=== PATIENT | male | born 1980 | race Caucasian/White ===

== ENCOUNTER 2016-09-27 11:11 | Emergency (ER) | payer BC, OTHER ==
[2016-09-27 11:40] LABS: BASO % 0.2 % (0.0-1.0); EOS # 0.1 K/mm3 (0.0-0.50); EOS % 1.3 % (0.0-3.0); LARGE UNSTAINED CELL # 0.1 K/mm3 (0.0-0.4); LARGE UNSTAINED CELL % 1.5 % (0.0-4.0); LYMPH # 1.7 K/mm3 (1.5-4.5); LYMPH % 21.6 % (24.0-44.0); MEAN CORPUSCULAR HEMOGLOBIN 28.6 pg (27.0-33.0); MEAN CORPUSCULAR HGB CONC 33.8 g/dl (32.0-36.5); MEAN CORPUSCULAR VOLUME 84.7 fl (80.0-96.0); MONO # 0.3 K/mm3 (0.0-0.8); MONO % 4.4 % (0.0-5.0); NEUTROPHILS # 5.5 K/mm3 (1.8-7.7); PLATELET COUNT, AUTOMATED 246 k/mm3 (150-450); RED CELL DISTRIBUTION WIDTH 13.1 % (11.5-14.5); WHITE BLOOD COUNT 7.7 K/mm3 (4.0-10.0)
[2016-09-27 12:13] LABS: ANION GAP 7 MEQ/L (8-16); BLOOD UREA NITROGEN 14 MG/DL (7-18); CALCIUM LEVEL 8.5 MG/DL (8.5-10.1); CARBON DIOXIDE LEVEL 26 MEQ/L (21-32); CHLORIDE LEVEL 106 MEQ/L (98-107); CREATININE FOR GFR 0.92 MG/DL (0.70-1.30); GLOMERULAR FILTRATION RATE > 60.0 (>60); GLUCOSE, FASTING 114 MG/DL (70-105); POTASSIUM SERUM 4.2 MEQ/L (3.5-5.1); SODIUM LEVEL 139 MEQ/L (136-145)
--- NOTE | 2016-09-27 12:14 | REP ---
PORTABLE CHEST X-RAY: Semi-erect AP view. HISTORY: Chest pain. Comparison chest x-ray November 07, 2013. FINDINGS: The patient is status post prior median sternotomy. Heart is not felt to be enlarged. EKG monitoring electrodes are seen. Pulmonary vasculature is not increased. The lungs are well inflated and clear. Pleural angles are sharp. IMPRESSION: Prior sternotomy. Otherwise no acute disease. Signed by Lam Vo MD 09/27/2016 02:01 P
--- NOTE | 2016-09-27 18:38 | EDDOCDS ---
Physician Documentation [facility] Name: Freeman Valdez Age: 36 yrs Sex: Male : 1980 Arrival Date: 09/27/2016 Time: 11:11 Bed OBSERVATION Private MD: Brody Stewart H. Disposition: 09/27/16 18:27 Patient has left against medical advice. Impression: Chest pain, unspecified. - Patients states they are going to Home/Self Care. - Condition is Fair. - Discharge Instructions: Angina Pectoris, Nonspecific Chest Pain, Chest Wall Pain, Nonspecific Chest Pain, [id number]. Medication Reconciliation, Local Pharmacy Hours form. Follow up: Emergency Department; When: Tomorrow. - Problem is new. - Symptoms are resolved. Historical: - Allergies: no known allergies; - Home Meds: 1. Plavix 75 mg Oral tab 1 tab once daily (Last dose: 09/27/2016 06:00) 2. aspirin 81 mg Oral TbEC 1 tab once daily (Last dose: 09/27/2016 06:00) 3. lisinopril 10 mg Oral tab once daily (Last dose: 09/27/2016 06:00) 4. atorvastatin 40 mg oral tab once daily (Last dose: 09/27/2016 06:00) 5. metoprolol tartrate 25 mg Oral tab 1 tab once daily (Last dose: 09/27/2016 06:00) 6. Nitrostat 0.4 mg SL subl every 5 minutes (Last dose: 09/27/2016 10:45) - PMHx: Myocardial infarction; Hypercholesterolemia; Hypertension; - PSHx: Stents, Coronary (December 2009); CABG (2009); knee surgery; triple bypass; - Social history: Smoking status: Patient uses tobacco products, current every day smoker. No barriers to communication noted, The patient speaks fluent Latvian, Speaks appropriately for age. - Family history: No immediate family members are acutely ill. - : The pt / caregiver states he / she is on anticoagulants: Plavix. Home medication list is obtained from the patient. - Exposure Risk Screening:: None identified. Vital Signs: 09/27 11:12 BP 171 / 105; Pulse 84; Resp 18; Temp 97.8(O); Pulse Ox 99% on R/A; Weight 170.1 kg / dd6 375.01 lbs (R); Height 6 ft. 4 in. (193.04 cm) (R); 14:46 Pulse 74 MON; Pulse Ox 98% ; mb9 14:46 BP 145 / 89 (auto/); mb9 16:46 BP 146 / 65 (auto/); mb9 16:47 Pulse 78 MON; Pulse Ox 96% ; mb9 11:12 Body Mass Index 45.65 (170.10 kg, 193.04 cm) dd6 MDM: 11:18 ECG WITH READING ER PHYS+CARDIAG ordered. EDMS 11:19 Stamping Operator/Pulse Ox/q 30 min VS ordered. sd1 11:19 IV Saline Lock ordered. sd1 11:19 Rhythm Strip to chart ordered. sd1 11:19 Undress patient appropriately for examination ordered. sd1 11:20 Basic Metabolic Profile Ordered. EDMS 11:20 CBC with Diff Ordered. EDMS 11:20 Cardiac Injury Profile Ordered. EDMS 11:20 D-Dimer Quant Ordered. EDMS 11:20 Troponin Ordered. EDMS 11:21 Chest, 1 View Ordered. EDMS 11:58 CBC with Diff Reviewed. sd1 12:12 Financial registration complete. mm15 12:20 Basic Metabolic Profile Reviewed. sd1 12:20 Cardiac Injury Profile Reviewed. sd1 12:20 Troponin Reviewed. sd1 12:20 Chest, 1 View Reviewed. sd1 12:35 Recheck B/P ordered. sd1 12:36 Redraw CIP &Troponin (put time in details section) ordered. sd1 12:36 Repeat EKG (put time details section) ordered. sd1 12:46 Repeat EKG (put time details section) complete. lbd 12:46 Redraw CIP &Troponin (put time in details section) complete. lbd 12:49 CARDIAC MARKER PANEL Ordered. EDMS 12:51 ECG WITH READING ER PHYS ordered. EDMS 13:25 [facility] Payment Agreement was scanned into [employer] and attached to record. mm15 13:25 REGULAR+DIET ordered. EDMS 13:36 D-Dimer Quant Reviewed. sd1 18:12 CARDIAC MARKER PANEL Reviewed. sd1 18:12 Chest, 1 View Reviewed. sd1 Signatures: Dispatcher [employer] EDMS Paula Dela Cruz MD MD sd1 Nahomy Rene, Industrial Health Engineer Unit lbd Lena Rodriguez RN RN srm Dana Jones RN RN ld5 Morenita Leong mm15 Cassius Kingston RN RN mb9 The chart was reviewed and I authenticate all verbal orders and agree with the evaluation and treatment provided.Corrections: (The following items were deleted from the chart) 11:26 11:20 Home Meds: carvedilol oral oral (Last Dose: 09/27/2016 06:00); srm srm Attachments: 13:25 [facility] [place] mm15 MTDD
--- NOTE | 2016-09-27 18:38 | EDDOCDS ---
Nurse's Notes [facility] Name: Freeman Valdez Age: 36 yrs Sex: Male : 1980 Arrival Date: 09/27/2016 Time: 11:11 Bed OBSERVATION Private MD: Brody Stewart H. Diagnosis: Chest pain, unspecified Presentation: 09/27 11:17 Presenting complaint: Patient states: mid chest pain since 1000. pain does not radiate. srm took 3 nitro without change in chest pressure. hx [place] 3 yrs ago. no cough or cold symptoms, no change in pain with a deep breath. Adult Sepsis Screening: The patient does not have new or worsening altered mentation. Patient's respiratory rate is less than 22. Systolic blood pressure is greater than 100. Patient has a qSOFA score of 0- Negative Sepsis Screen. Suicide/Homicide risk assessment- the patient denies having any suicidal and/or homicidal ideations and does not present with any other emotional, behavioral or mental health complaints. Status: Patient is not a clinical services specialist or dependent. Transition of care: patient was not received from another setting of care. 11:17 Acuity: AVE Level 2 srm 11:17 Method Of Arrival: Walkin/Carried/Asstd srm 11:26 81MG AT 0600. srm Triage Assessment: 11:20 General: Appears in no apparent distress, Behavior is appropriate for age, cooperative. srm Pain: Denies pain. Quality of pain is described as pressure. HIV screening NA for this visit Offered previously. Cardiovascular: Chest pain is described as denies pain. radiates Does not radiate. episodes are continuous began 1.5 hours. Historical: - Allergies: no known allergies; - Home Meds: 1. Plavix 75 mg Oral tab 1 tab once daily (Last dose: 09/27/2016 06:00) 2. aspirin 81 mg Oral TbEC 1 tab once daily (Last dose: 09/27/2016 06:00) 3. lisinopril 10 mg Oral tab once daily (Last dose: 09/27/2016 06:00) 4. atorvastatin 40 mg oral tab once daily (Last dose: 09/27/2016 06:00) 5. metoprolol tartrate 25 mg Oral tab 1 tab once daily (Last dose: 09/27/2016 06:00) 6. Nitrostat 0.4 mg SL subl every 5 minutes (Last dose: 09/27/2016 10:45) - PMHx: Myocardial infarction; Hypercholesterolemia; Hypertension; - PSHx: Stents, Coronary (December 2009); CABG (2009); knee surgery; triple bypass; - Social history: Smoking status: Patient uses tobacco products, current every day smoker. No barriers to communication noted, The patient speaks fluent British, Speaks appropriately for age. - Family history: No immediate family members are acutely ill. - : The pt / caregiver states he / she is on anticoagulants: Plavix. Home medication list is obtained from the patient. - Exposure Risk Screening:: None identified. Screenin:04 Screening information is obtained from the patient. Fall risk: No risks identified. mb9 Assistance ADL's: requires no assistance with activities of daily living. Abuse/DV Screen: The patient / caregiver reports he/she is: not in a situation that causes fear, pain or injury. Nutritional screening: No deficits noted. Advance Directives: There is no active DNR order. home support is adequate. Assessment: 12:21 General: Appears in no apparent distress, Behavior is appropriate for age, cooperative. mb9 Cardiovascular: Heart tones S1 S2 present Pulses are all present. Rhythm is sinus rhythm Chest pain pt reports "chest pressure" prior to arrival that has now subsided. . Respiratory: Airway is patent Respiratory effort is even, unlabored. 13:00 Reassessment: Patient appears in no apparent distress at this time. Patient states mb9 symptoms have improved. General: Appears in no apparent distress, comfortable, Behavior is cooperative. Pain: Denies pain. Respiratory: Airway is patent Respiratory effort is even, unlabored. 14:04 Reassessment: Patient appears in no apparent distress at this time. Patient states mb9 symptoms have improved. General: Appears in no apparent distress, comfortable, Behavior is appropriate for age, cooperative. Pain: Denies pain. Respiratory: Airway is patent Respiratory effort is even, unlabored. 15:00 Reassessment: Patient appears in no apparent distress at this time. Patient states mb9 symptoms have improved. General: Appears comfortable, Behavior is appropriate for age, cooperative. Pain: Denies pain. Respiratory: Airway is patent Respiratory effort is even, unlabored. 16:30 Reassessment: Patient states symptoms have improved. Adult Sepsis Screening: The mb9 patient does not have new or worsening altered mentation. Patient's respiratory rate is less than 22. Systolic blood pressure is greater than 100. Patient has a qSOFA score of 0- Negative Sepsis Screen. General: Appears distressed, Behavior is crying. General: at this time pt would like to sign AMA. this rn explained to pt that it would only be another hour before draw the troponin and do the ekg and that with his cardiac history he should seriously consider staying to have repeat lab work. . Pain: Denies pain. Respiratory: Airway is patent Respiratory effort is even, unlabored. 18:33 General: First contact with pt. Pt up pacing around room. SO at bedside. SO reports ld5 provider explained to pt risks of leaving AMA. This RN explained to pt and SO that ER is always open if pt decides to return. Pt and SO both express understanding of follow-up at ER tomorrow. Vital Signs: 11:12 BP 171 / 105; Pulse 84; Resp 18; Temp 97.8(O); Pulse Ox 99% on R/A; Weight 170.1 kg dd6 (R); Height 6 ft. 4 in. (193.04 cm) (R); 14:46 Pulse 74 MON; Pulse Ox 98% ; mb9 14:46 BP 145 / 89 (auto/); mb9 16:46 BP 146 / 65 (auto/); mb9 16:47 Pulse 78 MON; Pulse Ox 96% ; mb9 11:12 Body Mass Index 45.65 (170.10 kg, 193.04 cm) dd6 Vitals: 11:12 Log In Time: September 27, 2016 at 11:10. RN notified that patient meets Red Flag dd6 criteria. ED Course: 11:12 Patient visited by Henry Rubio PCA. dd6 11:12 Brody Stewart is Private Physician. dd6 11:12 Patient moved to Waiting dd6 11:16 Patient moved to 18 [facility] 11:18 Triage Initiated [facility] 11:22 EKG done. (by ED staff). Reviewed by Paula Dela Cruz MD. nb2 11:26 The patient / caregiver is instructed regarding the plan of care and ED course. Patient srm has correct armband on for positive identification. Placed in gown. Bed in low position. Call light in reach. Side rails up X 1. paper final inspector on. Pulse ox on. NIBP on. 11:26 Inserted saline lock: 20 gauge in left antecubital area and blood collected. srm 11:27 Patient visited by Lena Rodriguez, KYLAH. srm 11:31 Basic Metabolic Profile Sent. kr3 11:31 CBC with Diff Sent. kr3 11:31 Cardiac Injury Profile Sent. kr3 11:31 D-Dimer Quant Sent. kr3 11:32 Troponin Sent. kr3 11:45 Paula Dela Cruz MD is Attending Physician. sd1 11:45 Patient visited by Paula Dela Cruz MD. sd1 12:15 Chest, 1 View Returned. EDMS 13:25 [facility] Payment Agreement was scanned into [employer] and attached to record. mm15 13:36 Patient moved to OBSERVATION sd1 14:04 No procedures done that require assistance. mb9 14:36 Chest, 1 View Returned. EDMS 14:49 Patient visited by Cassius Kingston RN. mb9 17:53 Patient visited by Geoff Kee PCA. jrd 17:53 EKG done. (by ED staff). Reviewed by Paula Dela Cruz MD. jrd 18:32 Patient visited by Nataliia Herbert RN. ja5 18:32 Discontinued lock intact, bleeding controlled, pressure dressing applied, No ja5 redness/swelling at site. 18:37 Patient visited by Dana Jones RN. ld5 Order Results: Lab Order: Basic Metabolic Profile; SPEC'M 09/27/16 11:30 Test: GLUCOSE, FASTING; Value: 114; Range: 70-105; Abnormal: Above high normal; Units: MG/DL; Status: F Test: BLOOD UREA NITROGEN; Value: 14; Range: 7-18; Units: MG/DL; Status: F Test: CREATININE FOR GFR; Value: 0.92; Range: 0.70-1.30; Units: MG/DL; Status: F Test: GLOMERULAR FILTRATION RATE; Value: > 60.0; Range: >60; Status: F Test: SODIUM LEVEL; Value: 139; Range: 136-145; Units: MEQ/L; Status: F Test: POTASSIUM SERUM; Value: 4.2; Range: 3.5-5.1; Units: MEQ/L; Status: F Test: CHLORIDE LEVEL; Value: 106; Range: 98-107; Units: MEQ/L; Status: F Test: CARBON DIOXIDE LEVEL; Value: 26; Range: 21-32; Units: MEQ/L; Status: F Test: ANION GAP; Value: 7; Range: 8-16; Abnormal: Below low normal; Units: MEQ/L; Status: F Test: CALCIUM LEVEL; Value: 8.5; Range: 8.5-10.1; Units: MG/DL; Status: F Test Note: ; Units are mL/min/1.73 m2 Chronic Kidney Disease Staging per NKF: Stage I & II GFR >=60 Normal to Mildly Decreased Stage III GFR 30-59 Moderately Decreased Stage IV GFR 15-29 Severely Decreased Stage V GFR <15 Very Little GFR Left ESRD GFR <15 on GUEST SPECIALIST Lab Order: CBC with Diff; SPEC'M 09/27/16 11:30 Test: WHITE BLOOD COUNT; Value: 7.7; Range: 4.0-10.0; Units: K/mm3; Status: F Test: RED BLOOD COUNT; Value: 5.28; Range: 4.30-6.10; Units: M/mm3; Status: F Test: HEMOGLOBIN; Value: 15.1; Range: 14.0-18.0; Units: g/dl; Status: F Test: HEMATOCRIT; Value: 44.7; Range: 42.0-52.0; Units: %; Status: F Test: MEAN CORPUSCULAR VOLUME; Value: 84.7; Range: 80.0-96.0; Units: fl; Status: F Test: MEAN CORPUSCULAR HEMOGLOBIN; Value: 28.6; Range: 27.0-33.0; Units: pg; Status: F Test: MEAN CORPUSCULAR HGB CONC; Value: 33.8; Range: 32.0-36.5; Units: g/dl; Status: F Test: RED CELL DISTRIBUTION WIDTH; Value: 13.1; Range: 11.5-14.5; Units: %; Status: F Test: PLATELET COUNT, AUTOMATED; Value: 246; Range: 150-450; Units: k/mm3; Status: F Test: NEUTROPHILS %; Value: 71.0; Range: 36.0-66.0; Abnormal: Above high normal; Units: %; Status: F Test: LYMPH %; Value: 21.6; Range: 24.0-44.0; Abnormal: Below low normal; Units: %; Status: F Test: MONO %; Value: 4.4; Range: 0.0-5.0; Units: %; Status: F Test: EOS %; Value: 1.3; Range: 0.0-3.0; Units: %; Status: F Test: BASO %; Value: 0.2; Range: 0.0-1.0; Units: %; Status: F Test: LARGE UNSTAINED CELL %; Value: 1.5; Range: 0.0-4.0; Units: %; Status: F Test: NEUTROPHILS #; Value: 5.5; Range: 1.8-7.7; Units: K/mm3; Status: F Test: LYMPH #; Value: 1.7; Range: 1.5-4.5; Units: K/mm3; Status: F Test: MONO #; Value: 0.3; Range: 0.0-0.8; Units: K/mm3; Status: F Test: EOS #; Value: 0.1; Range: 0.0-0.50; Units: K/mm3; Status: F Test: BASO #; Value: 0.0; Range: 0.0-0.2; Units: K/mm3; Status: F Test: LARGE UNSTAINED CELL #; Value: 0.1; Range: 0.0-0.4; Units: K/mm3; Status: F Lab Order: Cardiac Injury Profile; SPEC'M 09/27/16 11:30 Test: CPK CREATINE PHOSPHOKINASE; Value: 415; Range: 39-308; Abnormal: Above high normal; Units: U/L; Status: F Test: CK-MB VALUE MASS; Value: 2.0; Range: 0.0-3.6; Units: NG/ML; Status: F Test: MB/CK RELATIVE INDEX; Value: 0.48; Range: < OR =4; Status: F Test Note: ; DIAGNOSIS CRITERIA MMB ng/ml Relative Index (RI) NON-AMI < or = 5 N/A LOPEZ ZONE > 5 < or = 4 AMI > 5 > 4 Lab Order: D-Dimer Quant; SPEC'M 09/27/16 12:11 Test: D-DIMER QUANT; Value: 270.7; Range: <500; Units: ng/ml; Status: F Lab Order: Troponin; SPEC'M 09/27/16 11:30 Test: TROPONIN I; Value: < 0.02; Range: < 0.10; Units: NG/ML; Status: F Test Note: ; Troponin I Reference Interval for Siemens Ganos LOCI: 99th Percentile= 0.00-0.045 ng/ml Risk Stratification: <= 0.10 ng/ml Decreased Risk for Adverse Clinical Events. 0.10-1.50 ng/ml Increased Risk for Adverse Clinical Events. Evaluation of additional criterion and/or repeat testing in 2-6 hours is suggested to rule out myocardial damage. >= 1.50 ng/ml Indicative of Myocardial Injury. Lab Order: CARDIAC MARKER PANEL; SPEC'M 09/27/16 17:28 Test: CPK CREATINE PHOSPHOKINASE; Value: 343; Range: 39-308; Abnormal: Above high normal; Units: U/L; Status: F Test: CK-MB VALUE MASS; Value: 1.5; Range: 0.0-3.6; Units: NG/ML; Status: F Test: MB/CK RELATIVE INDEX; Value: 0.43; Range: < OR =4; Status: F Test: TROPONIN I; Value: < 0.02; Range: < 0.10; Units: NG/ML; Status: F Test Note: ; DIAGNOSIS CRITERIA MMB ng/ml Relative Index (RI) NON-AMI < or = 5 N/A LOPEZ ZONE > 5 < or = 4 AMI > 5 > 4 Radiology Order: Chest, 1 View Test: Chest, 1 View REASON FOR EXAMINATION: Chest Pain; PORTABLE CHEST X-RAY: Semi-erect AP view.; ; HISTORY: Chest pain.; ; Comparison chest x-ray November 07, 2013.; ; FINDINGS: The patient is status post prior median sternotomy. Heart is not felt; to be enlarged. EKG monitoring electrodes are seen. Pulmonary vasculature is; not increased. The lungs are well inflated and clear. Pleural angles are; sharp.; ; IMPRESSION: Prior sternotomy. Otherwise no acute disease.; ; ; Signed by; Lam Vo MD 09/27/2016 02:01 P; Outcome: 18:27 Patient left against medical advice. sd1 18:33 Discharge Assessment: Patient awake, alert and oriented x 3. No cognitive and/or ld5 functional deficits noted. Patient verbalized understanding of disposition instructions. patient administered narcotics - no. The following High Risk Discharge criteria are identified: Yes, AMA. The patient is leaving AMA: Notification of AMA status is made to the charge nurse, the ED attending physician. Condition: unchanged. No special radiology studies were completed. Property :Personal belongings accompany Pt. 18:37 Patient left the ED. ld5 Signatures: Dispatcher Med[employer] EDMS Paula Dela Cruz MD MD sd1 Lena Rodriguez, RN RN srm Benita Muñiz,RN RN kr3 Henry Rubio, TOMATO PASTE MAKER TOMATO PASTE MAKER dd6 Dana JonesRN RN ld5 Morenita Leong mm15 Geoff Kee, TOMATO PASTE MAKER TOMATO PASTE MAKER d Cassius Kingston,RN RN mb9 Scarlet Grimes2 Nataliia Herbert,RN RN ja5 Corrections: (The following items were deleted from the chart) 11:26 11:17 Aspirin was not taken prior to arrival. srm srm 11:26 11:20 Home Meds: carvedilol oral oral (Last Dose: 09/27/2016 06:00); srm srm MTDD
--- NOTE | 2016-09-27 19:30 | ECGEPIP ---
Stationary ECG Study [facility] - ED Test Date: 2016-09-27 Pat Name: ALEX LYNCH Department: Room: - Gender: M Science Liaison: cherise : 1980 Requested By: Paula Dela Cruz Order Number: [id number] Reading MD: Paula Dela Cruz Measurements Intervals [place] Rate: 86 P: 9 [place]: 179 QRS: 14 QRSD: 97 T: 57 QT: 395 QTc: 473 Interpretive Statements SINUS RHYTHM NONSPECIFIC T-WAVE ABNORMALITY PRIOR INFERIOR MO INCREASED RATE 11/07/13 Electronically Signed On 09-27-2016 19:30:09 EST by Paula Dela Cruz
--- NOTE | 2016-09-27 19:36 | ECGEPIP ---
Stationary ECG Study [facility] - ED Test Date: 2016-09-27 Pat Name: ALEX LYNCH Department: Room: - Gender: M Cager Operator: fartun : 1980 Requested By: Paula Dela Cruz Order Number: [id number] Reading MD: Paula Dela Cruz Measurements Intervals [place] Rate: 80 P: 15 OR: 164 QRS: 23 QRSD: 94 T: 76 QT: 394 QTc: 455 Interpretive Statements SINUS RHYTHM POSSIBLE INFERIOR MYOCARDIAL INFARCTION, PROBABLY OLD MODERATE T-WAVE ABNORMALITY, CONSIDER ANTEROLATERAL ISCHEMIA, MORE PRONOUNCED COMPARED 11:22 Electronically Signed On 09-27-2016 19:35:53 EST by Paula Dela Cruz
--- NOTE | 2016-09-29 19:38 | EDDOCDS ---
Physician Documentation [facility] Name: Freeman Valdez Age: 36 yrs Sex: Male : 1980 Arrival Date: 09/27/2016 Time: 11:11 Bed OBSERVATION Private MD: Brody Stewart H. Disposition: 09/27/16 18:27 Patient has left against medical advice. Impression: Chest pain, unspecified. - Patients states they are going to Home/Self Care. - Condition is Fair. - Discharge Instructions: Angina Pectoris, Nonspecific Chest Pain, Chest Wall Pain, Nonspecific Chest Pain, [id number]. Medication Reconciliation, Local Pharmacy Hours form. Follow up: Emergency Department; When: Tomorrow. - Problem is new. - Symptoms are resolved. Historical: - Allergies: no known allergies; - Home Meds: 1. Plavix 75 mg Oral tab 1 tab once daily (Last dose: 09/27/2016 06:00) 2. aspirin 81 mg Oral TbEC 1 tab once daily (Last dose: 09/27/2016 06:00) 3. lisinopril 10 mg Oral tab once daily (Last dose: 09/27/2016 06:00) 4. atorvastatin 40 mg oral tab once daily (Last dose: 09/27/2016 06:00) 5. metoprolol tartrate 25 mg Oral tab 1 tab once daily (Last dose: 09/27/2016 06:00) 6. Nitrostat 0.4 mg SL subl every 5 minutes (Last dose: 09/27/2016 10:45) - PMHx: Myocardial infarction; Hypercholesterolemia; Hypertension; - PSHx: Stents, Coronary (December 2009); CABG (2009); knee surgery; triple bypass; - Social history: Smoking status: Patient uses tobacco products, current every day smoker. No barriers to communication noted, The patient speaks fluent Polish, Speaks appropriately for age. - Family history: No immediate family members are acutely ill. - : The pt / caregiver states he / she is on anticoagulants: Plavix. Home medication list is obtained from the patient. - Exposure Risk Screening:: None identified. Vital Signs: 09/27 11:12 BP 171 / 105; Pulse 84; Resp 18; Temp 97.8(O); Pulse Ox 99% on R/A; Weight 170.1 kg / dd6 375.01 lbs (R); Height 6 ft. 4 in. (193.04 cm) (R); 14:46 Pulse 74 MON; Pulse Ox 98% ; mb9 14:46 BP 145 / 89 (auto/); mb9 16:46 BP 146 / 65 (auto/); mb9 16:47 Pulse 78 MON; Pulse Ox 96% ; mb9 11:12 Body Mass Index 45.65 (170.10 kg, 193.04 cm) dd6 MDM: 11:18 ECG WITH READING ER PHYS+CARDIAG ordered. EDMS 11:19 [employer] Professor/Pulse Ox/q 30 min VS ordered. sd1 11:19 IV Saline Lock ordered. sd1 11:19 Rhythm Strip to chart ordered. sd1 11:19 Undress patient appropriately for examination ordered. sd1 11:20 Basic Metabolic Profile Ordered. EDMS 11:20 CBC with Diff Ordered. EDMS 11:20 Cardiac Injury Profile Ordered. EDMS 11:20 D-Dimer Quant Ordered. EDMS 11:20 Troponin Ordered. EDMS 11:21 Chest, 1 View Ordered. EDMS 11:58 CBC with Diff Reviewed. sd1 12:12 Financial registration complete. mm15 12:20 Basic Metabolic Profile Reviewed. sd1 12:20 Cardiac Injury Profile Reviewed. sd1 12:20 Troponin Reviewed. sd1 12:20 Chest, 1 View Reviewed. sd1 12:35 Recheck B/P ordered. sd1 12:36 Redraw CIP &Troponin (put time in details section) ordered. sd1 12:36 Repeat EKG (put time details section) ordered. sd1 12:46 Repeat EKG (put time details section) complete. lbd 12:46 Redraw CIP &Troponin (put time in details section) complete. lbd 12:49 CARDIAC MARKER PANEL Ordered. EDMS 12:51 ECG WITH READING ER PHYS ordered. EDMS 13:25 [facility] was scanned into [employer] and attached to record. mm15 13:25 REGULAR+DIET ordered. EDMS 13:36 D-Dimer Quant Reviewed. sd1 18:12 CARDIAC MARKER PANEL Reviewed. sd1 18:12 Chest, 1 View Reviewed. sd1 09/28 08:43 T-Sheet-- Draft Copy was scanned into [employer] and attached to record. se 08:44 ECG/EKG was scanned into [employer] and attached to record. [facility] 09:52 T-Sheet-- Draft Copy was scanned into [employer] and attached to record. gb Signatures: Dispatcher [employer] EDMS Paula Dela Cruz MD MD sd1 Nahomy Rene, Rail Detector Car Operator Unit lbd Lena Rodriguez, RN RN srm Mumtaz, Vi, Reg Reg gb Dana Jones RN RN ld5 Morenita Leong mm15 Cassius Kingston RN RN mb9 Paula Brooks [facility] The chart was reviewed and I authenticate all verbal orders and agree with the evaluation and treatment provided.Corrections: (The following items were deleted from the chart) 09/27 11:26 11:20 Home Meds: carvedilol oral oral (Last Dose: 09/27/2016 06:00); srm srm Attachments: 13:25 [facility] Payment Agreement mm15 08:44 ECG/EKG [facility] 09:52 T-Sheet-- Draft Copy gb Chart Complete MTDD
--- NOTE | 2016-09-29 19:38 | EDDOCDS ---
Nurse's Notes [facility] Name: Alex Valdez Age: 36 yrs Sex: Male : 1980 Arrival Date: 09/27/2016 Time: 11:11 Bed OBSERVATION Private MD: Brody Stewart H. Diagnosis: Chest pain, unspecified Presentation: 09/27 11:17 Presenting complaint: Patient states: mid chest pain since 1000. pain does not radiate. srm took 3 nitro without change in chest pressure. hx UT 3 yrs ago. no cough or cold symptoms, no change in pain with a deep breath. Adult Sepsis Screening: The patient does not have new or worsening altered mentation. Patient's respiratory rate is less than 22. Systolic blood pressure is greater than 100. Patient has a qSOFA score of 0- Negative Sepsis Screen. Suicide/Homicide risk assessment- the patient denies having any suicidal and/or homicidal ideations and does not present with any other emotional, behavioral or mental health complaints. Status: Patient is not a services clerk or dependent. Transition of care: patient was not received from another setting of care. 11:17 Acuity: AVE Level 2 srm 11:17 Method Of Arrival: Walkin/Carried/Asstd srm 11:26 81MG AT 0600. srm Triage Assessment: 11:20 General: Appears in no apparent distress, Behavior is appropriate for age, cooperative. srm Pain: Denies pain. Quality of pain is described as pressure. HIV screening NA for this visit Offered previously. Cardiovascular: Chest pain is described as denies pain. radiates Does not radiate. episodes are continuous began 1.5 hours. Historical: - Allergies: no known allergies; - Home Meds: 1. Plavix 75 mg Oral tab 1 tab once daily (Last dose: 09/27/2016 06:00) 2. aspirin 81 mg Oral TbEC 1 tab once daily (Last dose: 09/27/2016 06:00) 3. lisinopril 10 mg Oral tab once daily (Last dose: 09/27/2016 06:00) 4. atorvastatin 40 mg oral tab once daily (Last dose: 09/27/2016 06:00) 5. metoprolol tartrate 25 mg Oral tab 1 tab once daily (Last dose: 09/27/2016 06:00) 6. Nitrostat 0.4 mg SL subl every 5 minutes (Last dose: 09/27/2016 10:45) - PMHx: Myocardial infarction; Hypercholesterolemia; Hypertension; - PSHx: Stents, Coronary (December 2009); CABG (2009); knee surgery; triple bypass; - Social history: Smoking status: Patient uses tobacco products, current every day smoker. No barriers to communication noted, The patient speaks fluent Venezuelan, Speaks appropriately for age. - Family history: No immediate family members are acutely ill. - : The pt / caregiver states he / she is on anticoagulants: Plavix. Home medication list is obtained from the patient. - Exposure Risk Screening:: None identified. Screenin:04 Screening information is obtained from the patient. Fall risk: No risks identified. mb9 Assistance ADL's: requires no assistance with activities of daily living. Abuse/DV Screen: The patient / caregiver reports he/she is: not in a situation that causes fear, pain or injury. Nutritional screening: No deficits noted. Advance Directives: There is no active DNR order. home support is adequate. Assessment: 12:21 General: Appears in no apparent distress, Behavior is appropriate for age, cooperative. mb9 Cardiovascular: Heart tones S1 S2 present Pulses are all present. Rhythm is sinus rhythm Chest pain pt reports "chest pressure" prior to arrival that has now subsided. . Respiratory: Airway is patent Respiratory effort is even, unlabored. 13:00 Reassessment: Patient appears in no apparent distress at this time. Patient states mb9 symptoms have improved. General: Appears in no apparent distress, comfortable, Behavior is cooperative. Pain: Denies pain. Respiratory: Airway is patent Respiratory effort is even, unlabored. 14:04 Reassessment: Patient appears in no apparent distress at this time. Patient states mb9 symptoms have improved. General: Appears in no apparent distress, comfortable, Behavior is appropriate for age, cooperative. Pain: Denies pain. Respiratory: Airway is patent Respiratory effort is even, unlabored. 15:00 Reassessment: Patient appears in no apparent distress at this time. Patient states mb9 symptoms have improved. General: Appears comfortable, Behavior is appropriate for age, cooperative. Pain: Denies pain. Respiratory: Airway is patent Respiratory effort is even, unlabored. 16:30 Reassessment: Patient states symptoms have improved. Adult Sepsis Screening: The mb9 patient does not have new or worsening altered mentation. Patient's respiratory rate is less than 22. Systolic blood pressure is greater than 100. Patient has a qSOFA score of 0- Negative Sepsis Screen. General: Appears distressed, Behavior is crying. General: at this time pt would like to sign AMA. this rn explained to pt that it would only be another hour before draw the troponin and do the ekg and that with his cardiac history he should seriously consider staying to have repeat lab work. . Pain: Denies pain. Respiratory: Airway is patent Respiratory effort is even, unlabored. 18:33 General: First contact with pt. Pt up pacing around room. SO at bedside. SO reports ld5 provider explained to pt risks of leaving AMA. This RN explained to pt and SO that ER is always open if pt decides to return. Pt and SO both express understanding of follow-up at ER tomorrow. Vital Signs: 11:12 BP 171 / 105; Pulse 84; Resp 18; Temp 97.8(O); Pulse Ox 99% on R/A; Weight 170.1 kg dd6 (R); Height 6 ft. 4 in. (193.04 cm) (R); 14:46 Pulse 74 MON; Pulse Ox 98% ; mb9 14:46 BP 145 / 89 (auto/); mb9 16:46 BP 146 / 65 (auto/); mb9 16:47 Pulse 78 MON; Pulse Ox 96% ; mb9 11:12 Body Mass Index 45.65 (170.10 kg, 193.04 cm) dd6 Vitals: 11:12 Log In Time: September 27, 2016 at 11:10. RN notified that patient meets Red Flag dd6 criteria. ED Course: 11:12 Patient visited by Henry Rubio PCA. dd6 11:12 Brody Stewart is Private Physician. dd6 11:12 Patient moved to Waiting dd6 11:16 Patient moved to 18 [facility] 11:18 Triage Initiated [facility] 11:22 EKG done. (by ED staff). Reviewed by Paula Dela Cruz MD. nb2 11:26 The patient / caregiver is instructed regarding the plan of care and ED course. Patient srm has correct armband on for positive identification. Placed in gown. Bed in low position. Call light in reach. Side rails up X 1. electronic device monitor on. Pulse ox on. NIBP on. 11:26 Inserted saline lock: 20 gauge in left antecubital area and blood collected. srm 11:27 Patient visited by Lena Rodriguez, KYLAH. srm 11:31 Basic Metabolic Profile Sent. kr3 11:31 CBC with Diff Sent. kr3 11:31 Cardiac Injury Profile Sent. kr3 11:31 D-Dimer Quant Sent. kr3 11:32 Troponin Sent. kr3 11:45 Paula Dela Cruz MD is Attending Physician. sd1 11:45 Patient visited by Paula Dela Cruz MD. sd1 12:15 Chest, 1 View Returned. EDMS 13:25 [facility] Payment Agreement was scanned into [employer] and attached to record. mm15 13:36 Patient moved to OBSERVATION sd1 14:04 No procedures done that require assistance. mb9 14:36 Chest, 1 View Returned. EDMS 14:49 Patient visited by Cassius Kingston,KYLAH. mb9 17:53 Patient visited by Geoff Kee PCA. jrd 17:53 EKG done. (by ED staff). Reviewed by Paula Dela Cruz MD. jrd 18:32 Patient visited by Nataliia Herbert,KYLAH. ja5 18:32 Discontinued lock intact, bleeding controlled, pressure dressing applied, No ja5 redness/swelling at site. 18:37 Patient visited by Dana Jones,KYLAH. ld5 19:42 EKG-ADULT Returned. EDMS 19:43 ECG WITH READING ER PHYS Returned. EDMS 09/28 08:43 T-Sheet-- Draft Copy was scanned into [employer] and attached to record. seh 08:44 ECG/EKG was scanned into [employer] and attached to record. seh 09:52 T-Sheet-- Draft Copy was scanned into [employer] and attached to record. gb Order Results: Lab Order: Basic Metabolic Profile; SPEC'M 09/27/16 11:30 Test: GLUCOSE, FASTING; Value: 114; Range: 70-105; Abnormal: Above high normal; Units: MG/DL; Status: F Test: BLOOD UREA NITROGEN; Value: 14; Range: 7-18; Units: MG/DL; Status: F Test: CREATININE FOR GFR; Value: 0.92; Range: 0.70-1.30; Units: MG/DL; Status: F Test: GLOMERULAR FILTRATION RATE; Value: > 60.0; Range: >60; Status: F Test: SODIUM LEVEL; Value: 139; Range: 136-145; Units: MEQ/L; Status: F Test: POTASSIUM SERUM; Value: 4.2; Range: 3.5-5.1; Units: MEQ/L; Status: F Test: CHLORIDE LEVEL; Value: 106; Range: 98-107; Units: MEQ/L; Status: F Test: CARBON DIOXIDE LEVEL; Value: 26; Range: 21-32; Units: MEQ/L; Status: F Test: ANION GAP; Value: 7; Range: 8-16; Abnormal: Below low normal; Units: MEQ/L; Status: F Test: CALCIUM LEVEL; Value: 8.5; Range: 8.5-10.1; Units: MG/DL; Status: F Test Note: ; Units are mL/min/1.73 m2 Chronic Kidney Disease Staging per NKF: Stage I & II GFR >=60 Normal to Mildly Decreased Stage III GFR 30-59 Moderately Decreased Stage IV GFR 15-29 Severely Decreased Stage V GFR <15 Very Little GFR Left ESRD GFR <15 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 Lab Order: CBC with Diff; SPEC'M 09/27/16 11:30 Test: WHITE BLOOD COUNT; Value: 7.7; Range: 4.0-10.0; Units: K/mm3; Status: F Test: RED BLOOD COUNT; Value: 5.28; Range: 4.30-6.10; Units: M/mm3; Status: F Test: HEMOGLOBIN; Value: 15.1; Range: 14.0-18.0; Units: g/dl; Status: F Test: HEMATOCRIT; Value: 44.7; Range: 42.0-52.0; Units: %; Status: F Test: MEAN CORPUSCULAR VOLUME; Value: 84.7; Range: 80.0-96.0; Units: fl; Status: F Test: MEAN CORPUSCULAR HEMOGLOBIN; Value: 28.6; Range: 27.0-33.0; Units: pg; Status: F Test: MEAN CORPUSCULAR HGB CONC; Value: 33.8; Range: 32.0-36.5; Units: g/dl; Status: F Test: RED CELL DISTRIBUTION WIDTH; Value: 13.1; Range: 11.5-14.5; Units: %; Status: F Test: PLATELET COUNT, AUTOMATED; Value: 246; Range: 150-450; Units: k/mm3; Status: F Test: NEUTROPHILS %; Value: 71.0; Range: 36.0-66.0; Abnormal: Above high normal; Units: %; Status: F Test: LYMPH %; Value: 21.6; Range: 24.0-44.0; Abnormal: Below low normal; Units: %; Status: F Test: MONO %; Value: 4.4; Range: 0.0-5.0; Units: %; Status: F Test: EOS %; Value: 1.3; Range: 0.0-3.0; Units: %; Status: F Test: BASO %; Value: 0.2; Range: 0.0-1.0; Units: %; Status: F Test: LARGE UNSTAINED CELL %; Value: 1.5; Range: 0.0-4.0; Units: %; Status: F Test: NEUTROPHILS #; Value: 5.5; Range: 1.8-7.7; Units: K/mm3; Status: F Test: LYMPH #; Value: 1.7; Range: 1.5-4.5; Units: K/mm3; Status: F Test: MONO #; Value: 0.3; Range: 0.0-0.8; Units: K/mm3; Status: F Test: EOS #; Value: 0.1; Range: 0.0-0.50; Units: K/mm3; Status: F Test: BASO #; Value: 0.0; Range: 0.0-0.2; Units: K/mm3; Status: F Test: LARGE UNSTAINED CELL #; Value: 0.1; Range: 0.0-0.4; Units: K/mm3; Status: F Lab Order: Cardiac Injury Profile; SPEC'M 09/27/16 11:30 Test: CPK CREATINE PHOSPHOKINASE; Value: 415; Range: 39-308; Abnormal: Above high normal; Units: U/L; Status: F Test: CK-MB VALUE MASS; Value: 2.0; Range: 0.0-3.6; Units: NG/ML; Status: F Test: MB/CK RELATIVE INDEX; Value: 0.48; Range: < OR =4; Status: F Test Note: ; DIAGNOSIS CRITERIA MMB ng/ml Relative Index (RI) NON-AMI < or = 5 N/A LOPEZ ZONE > 5 < or = 4 AMI > 5 > 4 Lab Order: D-Dimer Quant; SPEC'M 09/27/16 12:11 Test: D-DIMER QUANT; Value: 270.7; Range: <500; Units: ng/ml; Status: F Lab Order: Troponin; SPEC'M 09/27/16 11:30 Test: TROPONIN I; Value: < 0.02; Range: < 0.10; Units: NG/ML; Status: F Test Note: ; Troponin I Reference Interval for [employer] LOCI: 99th Percentile= 0.00-0.045 ng/ml Risk Stratification: <= 0.10 ng/ml Decreased Risk for Adverse Clinical Events. 0.10-1.50 ng/ml Increased Risk for Adverse Clinical Events. Evaluation of additional criterion and/or repeat testing in 2-6 hours is suggested to rule out myocardial damage. >= 1.50 ng/ml Indicative of Myocardial Injury. Lab Order: CARDIAC MARKER PANEL; SPEC'M 09/27/16 17:28 Test: CPK CREATINE PHOSPHOKINASE; Value: 343; Range: 39-308; Abnormal: Above high normal; Units: U/L; Status: F Test: CK-MB VALUE MASS; Value: 1.5; Range: 0.0-3.6; Units: NG/ML; Status: F Test: MB/CK RELATIVE INDEX; Value: 0.43; Range: < OR =4; Status: F Test: TROPONIN I; Value: < 0.02; Range: < 0.10; Units: NG/ML; Status: F Test Note: ; DIAGNOSIS CRITERIA MMB ng/ml Relative Index (RI) NON-AMI < or = 5 N/A LOPEZ ZONE > 5 < or = 4 AMI > 5 > 4 Radiology Order: EKG-ADULT Test: EKG-ADULT REASON FOR EXAMINATION: Chest Pain; Stationary ECG Study; [facility] - ED; ; Test Date: 2016-09-27; Pat Name: ALEX VALDEZ Department:; Room: -; Gender: M Tax Associate Attorney: cherise; : 1980 Requested By: Paula Dela Cruz; Order Number: [id number] Reading MD: Paula Dela Cruz; Measurements; Intervals [place]; Rate: 86 P: 9; WV: 179 QRS: 14; QRSD: 97 T: 57; QT: 395; QTc: 473; Interpretive Statements; SINUS RHYTHM; NONSPECIFIC T-WAVE ABNORMALITY; PRIOR INFERIOR UT; INCREASED RATE 11/07/13; Electronically Signed On 09-27-2016 19:30:09 EST by Paula Dela Cruz; Radiology Order: Chest, 1 View Test: Chest, 1 View REASON FOR EXAMINATION: Chest Pain; PORTABLE CHEST X-RAY: Semi-erect AP view.; ; HISTORY: Chest pain.; ; Comparison chest x-ray November 07, 2013.; ; FINDINGS: The patient is status post prior median sternotomy. Heart is not felt; to be enlarged. EKG monitoring electrodes are seen. Pulmonary vasculature is; not increased. The lungs are well inflated and clear. Pleural angles are; sharp.; ; IMPRESSION: Prior sternotomy. Otherwise no acute disease.; ; ; Signed by; Lam Vo MD 09/27/2016 02:01 P; Radiology Order: ECG WITH READING ER PHYS Test: ECG WITH READING ER PHYS REASON FOR EXAMINATION: CHEST PAIN (REPEAT EKG AT 5:30); Stationary ECG Study; [facility] - ED; ; Test Date: 2016-09-27; Pat Name: ALEX VALDEZ Department:; Room: -; Gender: M Tax Associate Attorney: fartun; : 1980 Requested By: Paula Dela Cruz; Order Number: [id number] Reading MD: Paula Dela Cruz; Measurements; Intervals [place]uyler; Rate: 80 P: 15; WV: 164 QRS: 23; QRSD: 94 T: 76; QT: 394; QTc: 455; Interpretive Statements; SINUS RHYTHM; POSSIBLE INFERIOR MYOCARDIAL INFARCTION, PROBABLY OLD; MODERATE T-WAVE ABNORMALITY, CONSIDER ANTEROLATERAL ISCHEMIA, MORE PRONOUNCED; ; COMPARED 11:22; ; Electronically Signed On 09-27-2016 19:35:53 EST by Paula Dela Cruz; Outcome: 09/27 18:27 Patient left against medical advice. sd1 18:33 Discharge Assessment: Patient awake, alert and oriented x 3. No cognitive and/or ld5 functional deficits noted. Patient verbalized understanding of disposition instructions. patient administered narcotics - no. The following High Risk Discharge criteria are identified: Yes, AMA. The patient is leaving AMA: Notification of AMA status is made to the charge nurse, the ED attending physician. Condition: unchanged. No special radiology studies were completed. Property :Personal belongings accompany Pt. 18:37 Patient left the ED. ld5 Signatures: Dispatcher [employer] EDMS Paula Dela Cruz MD MD sd1 Lena Rodriguez, RN RN srm Vi Pandya Reg Reg gb Robie, Kathleen,RN RN kr3 Henry Rubio, RADIOLOGY PHYSICIAN ASSISTANT RADIOLOGY PHYSICIAN ASSISTANT dd6 Dana Jones RN RN ld5 Morenita Leong mm15 Geoff Kee, RADIOLOGY PHYSICIAN ASSISTANT RADIOLOGY PHYSICIAN ASSISTANT d Cassius Kingston,RN RN [id number] Paula Brooks Nicole nb2 Nataliia Herbert,RN RN ja5 Corrections: (The following items were deleted from the chart) 11:26 11:17 Aspirin was not taken prior to arrival. srm srm 11:26 11:20 Home Meds: carvedilol oral oral (Last Dose: 09/27/2016 06:00); srm srm Chart Complete MTDD
--- NOTE | 2016-09-29 19:38 | EDDOCDS ---
Physician Documentation [facility] Name: Freeman Valdez Age: 36 yrs Sex: Male : 1980 Arrival Date: 09/27/2016 Time: 11:11 Bed OBSERVATION Private MD: Brody Stewart H. Disposition: 09/27/16 18:27 Patient has left against medical advice. Impression: Chest pain, unspecified. - Patients states they are going to Home/Self Care. - Condition is Fair. - Discharge Instructions: Angina Pectoris, Nonspecific Chest Pain, Chest Wall Pain, Nonspecific Chest Pain, [id number]. Medication Reconciliation, Local Pharmacy Hours form. Follow up: Emergency Department; When: Tomorrow. - Problem is new. - Symptoms are resolved. Historical: - Allergies: no known allergies; - Home Meds: 1. Plavix 75 mg Oral tab 1 tab once daily (Last dose: 09/27/2016 06:00) 2. aspirin 81 mg Oral TbEC 1 tab once daily (Last dose: 09/27/2016 06:00) 3. lisinopril 10 mg Oral tab once daily (Last dose: 09/27/2016 06:00) 4. atorvastatin 40 mg oral tab once daily (Last dose: 09/27/2016 06:00) 5. metoprolol tartrate 25 mg Oral tab 1 tab once daily (Last dose: 09/27/2016 06:00) 6. Nitrostat 0.4 mg SL subl every 5 minutes (Last dose: 09/27/2016 10:45) - PMHx: Myocardial infarction; Hypercholesterolemia; Hypertension; - PSHx: Stents, Coronary (December 2009); CABG (2009); knee surgery; triple bypass; - Social history: Smoking status: Patient uses tobacco products, current every day smoker. No barriers to communication noted, The patient speaks fluent Telugu, Speaks appropriately for age. - Family history: No immediate family members are acutely ill. - : The pt / caregiver states he / she is on anticoagulants: Plavix. Home medication list is obtained from the patient. - Exposure Risk Screening:: None identified. Vital Signs: 09/27 11:12 BP 171 / 105; Pulse 84; Resp 18; Temp 97.8(O); Pulse Ox 99% on R/A; Weight 170.1 kg / dd6 375.01 lbs (R); Height 6 ft. 4 in. (193.04 cm) (R); 14:46 Pulse 74 MON; Pulse Ox 98% ; mb9 14:46 BP 145 / 89 (auto/); mb9 16:46 BP 146 / 65 (auto/); mb9 16:47 Pulse 78 MON; Pulse Ox 96% ; mb9 11:12 Body Mass Index 45.65 (170.10 kg, 193.04 cm) dd6 MDM: 11:18 ECG WITH READING ER PHYS+CARDIAG ordered. EDMS 11:19 Potato Chip Maker/Pulse Ox/q 30 min VS ordered. sd1 11:19 IV Saline Lock ordered. sd1 11:19 Rhythm Strip to chart ordered. sd1 11:19 Undress patient appropriately for examination ordered. sd1 11:20 Basic Metabolic Profile Ordered. EDMS 11:20 CBC with Diff Ordered. EDMS 11:20 Cardiac Injury Profile Ordered. EDMS 11:20 D-Dimer Quant Ordered. EDMS 11:20 Troponin Ordered. EDMS 11:21 Chest, 1 View Ordered. EDMS 11:58 CBC with Diff Reviewed. sd1 12:12 Financial registration complete. mm15 12:20 Basic Metabolic Profile Reviewed. sd1 12:20 Cardiac Injury Profile Reviewed. sd1 12:20 Troponin Reviewed. sd1 12:20 Chest, 1 View Reviewed. sd1 12:35 Recheck B/P ordered. sd1 12:36 Redraw CIP &Troponin (put time in details section) ordered. sd1 12:36 Repeat EKG (put time details section) ordered. sd1 12:46 Repeat EKG (put time details section) complete. lbd 12:46 Redraw CIP &Troponin (put time in details section) complete. lbd 12:49 CARDIAC MARKER PANEL Ordered. EDMS 12:51 ECG WITH READING ER PHYS ordered. EDMS 13:25 [facility] Payment Agreement was scanned into [email or web address] and attached to record. mm15 13:25 REGULAR+DIET ordered. EDMS 13:36 D-Dimer Quant Reviewed. sd1 18:12 CARDIAC MARKER PANEL Reviewed. sd1 18:12 Chest, 1 View Reviewed. sd1 09/28 08:43 T-Sheet-- Draft Copy was scanned into [email or web address] and attached to record. se 08:44 ECG/EKG was scanned into [email or web address] and attached to record. [facility] 09:52 T-Sheet-- Draft Copy was scanned into [email or web address] and attached to record. gb Signatures: Dispatcher [employer] EDMS Paula Dela Cruz MD MD sd1 Nahomy Rene, Soldering Machine Setter Unit lbd Lena Rodriguez, RN RN srm Mumtaz, Vi, Reg Reg gb Dana Jones RN RN ld5 Morenita Leong mm15 Cassius Kingston RN RN mb9 Paula Brooks [facility] The chart was reviewed and I authenticate all verbal orders and agree with the evaluation and treatment provided.Corrections: (The following items were deleted from the chart) 09/27 11:26 11:20 Home Meds: carvedilol oral oral (Last Dose: 09/27/2016 06:00); srm srm Attachments: 13:25 [facility] Payment Agreement mm15 08:44 ECG/EKG [facility] 09:52 T-Sheet-- Draft Copy gb Chart Complete MTDD
== END 2016-09-27 18:36 | disposition home or self-care (01) ==
LOC: M ED 11:11
DX: R07.9 Chest pain, unspecified (principal); R94.31 Abnormal electrocardiogram [ECG] [EKG]; I25.2 Old myocardial infarction; E78.00 Pure hypercholesterolemia, unspecified; I10 Essential (primary) hypertension; Z95.5 Presence of coronary angioplasty implant and graft; Z95.1 Presence of aortocoronary bypass graft; Z72.0 Tobacco use; Z79.02 Long term (current) use of antithrombotics/antiplatelets; Z79.82 Long term (current) use of aspirin; Z79.899 Other long term (current) drug therapy